=== PATIENT | male | born 1965 | race Caucasian/White ===

== ENCOUNTER 2022-10-18 16:43 | Emergency (ER) | payer MEDICARE, OTHER ==
[~2022-10-18] VITALS: Ht 170.2 cm; Wt 68.0 kg
[2022-10-18] MEDS ORDERED: ATOR40TA PO (17:15)
[2022-10-18] MEDS ORDERED: LUBI24CA5 PO (17:15)
[2022-10-18] MEDS ORDERED: MAG355OR18 PO (17:15)
[2022-10-18] MEDS ORDERED: ALBU2.5V38 IH (17:15)
[2022-10-18] MEDS ORDERED: HYDR-4209 PO (17:15)
[2022-10-18] MEDS ORDERED: FINA5TAB11 PO (17:15)
[2022-10-18] MEDS ORDERED: MULT-213 PO (17:15)
[2022-10-18] MEDS ORDERED: GABA-532 PO (17:15)
[2022-10-18] MEDS ORDERED: HALO5TAB PO (17:15)
[2022-10-18] MEDS ORDERED: ASPI81TA31 PO (17:15)
[2022-10-18] MEDS ORDERED: IPRA0.2S48 NEB (17:15)
[2022-10-18] MEDS ORDERED: FURO20TA4 PO (17:15)
[2022-10-18] MEDS ORDERED: ACET-2154 PO (17:15)
[2022-10-18 17:26] LABS: HEMATOCRIT 34.8 % (36.7-47.1); MEAN CORPUSCULAR HEMOGLOBIN 24.4 uug (23.8-33.4); MEAN CORPUSCULAR VOLUME 80.3 fL (73.0-96.2); PLATELET COUNT (AUTO) 179 K/uL (152-348)
--- NOTE | 2022-10-18 17:27 | NUR ---
PT IS IN ROOM #1B. DR LUNA EVALUATED THE PT.
[2022-10-18 17:59] LABS: CARBON DIOXIDE 36 mmol/L (21-32); CHLORIDE 100 mmol/L (98-107); CREATININE 0.8 mg/dL (0.6-1.3); GLUCOSE 113 mg/dL (74-106); POTASSIUM 3.1 mmol/L (3.5-5.1); UREA NITROGEN, BLOOD 26 mg/dL (7-18)
[2022-10-18 18:10] LABS: ALANINE AMINOTRANSFERASE 9 U/L (16-63); ALKALINE PHOSPHATASE 100 U/L (50-136); ASPARTATE AMINOTRANSFERASE 9 U/L (15-37); BILIRUBIN,DIRECT 0.1 mg/dL (0.0-0.2); BILIRUBIN,TOTAL 0.2 mg/dL (0.2-1.0); TOTAL PROTEIN, SERUM 7.5 g/dL (6.4-8.2)
--- NOTE | 2022-10-18 18:18 | NUR ---
[facility] WAS CALLED TO TRANSFER PT BACK TO HIS [facility]URSING FACILITY [facility]. ETA IS 90 MINUTES.
--- NOTE | 2022-10-18 19:00 | NUR ---
Pt. in bed, awake, VSS
--- NOTE | 2022-10-18 19:27 | NUR ---
[facility] came to pick patient.
[2022-10-18 19:38] VITALS: BP 118/80
--- NOTE | 2022-10-18 19:38 | NUR ---
Patient discharged to home in stable condition. Written and verbal after care instructions given. Patient verbalizes understanding of instructions. Stressed follow up or return to ER for worsening s/s.
== END 2022-10-18 19:39 | disposition home or self-care (01) ==
LOC: ER 16:43
DX: M21.332 Wrist drop, left wrist (principal); G40.909 Epilepsy, unspecified, not intractable, without status epilepticus; F25.9 Schizoaffective disorder, unspecified; I45.10 Unspecified right bundle-branch block; J44.9 Chronic obstructive pulmonary disease, unspecified; Z87.01 Personal history of pneumonia (recurrent); Z88.0 Allergy status to penicillin; Z88.1 Allergy status to other antibiotic agents; Z91.010 Allergy to peanuts; G20 Parkinson's disease; Z87.820 Personal history of traumatic brain injury; Z93.3 Colostomy status; N40.0 Benign prostatic hyperplasia without lower urinary tract symptoms; F79 Unspecified intellectual disabilities; I50.9 Heart failure, unspecified; Z79.899 Other long term (current) drug therapy
CPT/HCPCS: 36415; 71045; 83605; 84484; 85025; 85730; 87040; 93005; A4663; J7040